=== PATIENT | male | born 1960 | race Caucasian/White ===

== ENCOUNTER 2017-09-18 06:55 | Day surgery (SDC) | payer OTHER, SELFPAY ==
[2017-09-18] VITALS (7 sets, daily range): BP systolic 101–131; BP diastolic 59–89; PULSE 62–85; RESP 14–16; TEMP 36.2–37.1; O2SAT 94–98; BMI 45.3
[2017-09-18 07:41] LABS: Bedside Glucose 143 mg/dL (70-110)
--- NOTE | 2017-09-18 08:18 | COLBX_PTH ---
PATIENT: YOGI LANE LOC: EN U#:[id number] AGE/SX: 57/M ROOM: RE09/18/[address]: Dr. Uriel Loaiza MD : 1960 BED: DIS: 09/18/2017 SPEC #: [id number] RECD: 09/18/17 09:08 STATUS: KRAIG CARLA #: [id number] PRISCILLA: 09/18/17 08:[address]: Uriel Loaiza DEPT: SURGICAL PATHOLOGY RECD BY: Catalino Warner ENTERED: 09/18/17 09:09 SP TYPE: COLON BX OTHR DR: Dr. Laura Aquino, DO Tissues: A - Right colon B - Rectum, NOS Procedures: Surgery Specimen Level IV HEADER OPERATION: Colonoscopy with polypectomy PRE-OP DIAGNOSIS: Screening TISSUE SUBMITTED: A ? Polyp right colon / proximal ascending, rule out adenoma, B ? Polyp rectum, rule out adenoma MICROSCOPIC DIAGNOSIS A. Polyp right colon/proximal ascending colon, polypectomy: Fragments of hyperplastic polyp. Fragments of fecal material. B. Rectal polyp, polypectomy: Fragments of colonic mucosa with focal hyperplastic changes and with cautery artifacts. SJ:latanya 09/19/17 MICROSCOPIC DESCRIPTION Slides are reviewed. GROSS DESCRIPTION A - Received in fixative is one container labeled with the patient's name and designated polyp right colon. The specimen consists of multiple irregular fragments of light ambrose soft tissue mixed with fecal material that in aggregate measure 2 x 1 x 0.1 cm. The specimen is totally submitted in one cassette. B - Received in fixative is one container labeled with the patient's name and designated rectal polyp. The specimen consists of two irregular fragments of light ambrose soft tissue that in aggregate measure 0.5 x 0.2 x 0.1 cm. The specimen is totally submitted in one cassette. / AM:latanya 09/18/17 TC:1 CPT: 45053 x2
--- NOTE | 2017-09-18 08:35 | PCM.OP.BLANK ---
Operative Report Date of Procedure: 09/18/17 Preop diagnosis: [Patient for screening colonoscopy] Postop diagnosis: [Colonoscopy with snare polypectomy ?2] Anesthesia:[Provided the MAC] Instrument:[Olympus adjustable pediatric colonoscope] Informed consent was taken prior to procedure. The patient was brought to the endoscopy suite and placed in the left shoulder down. Anesthesia provided the MAC. Rectal exam was performed prior to inserting the scope. The colonoscope was passed into the rectum the rectal mucosa appeared normal.. Moving up the left colon there was scattered diverticuli. Across the transverse colon mucosa was normal down the right colon the cecum was visualized the patient had an excellent preparation. Just above the cecum was a sessile polyp on a fold using a hot snare the polyp was transected. There was a small residual piece of the polyp this was removed with cold biopsy forceps. Backup the right colon there were no large polyps seen across the transverse colon mucosa remain normal. Below the splenic flexure and down to the left colon there was diverticulosis and myochosis. At the distal sigmoid rectal area was a small sessile polyp this was removed with a hot snare. Retroflexion performed the rectum showed no abnormalities of the rectal mucosa. The colon was decompressed and the patient tolerated procedure well. Impression: Screening colonoscopy small polyps removed from the colon today via hot snare Plan: Follow-up the pathology repeat a colonoscopy within 3-[address] rae
== END 2017-09-18 09:13 | disposition home or self-care (01) ==
LOC: EN 06:56 → AC 06:59
PROVIDERS: Family Provider Internal Medicine; PCP Internal Medicine; Visit Provider Internal Medicine Gastroenterology
PROC: 0DJD8ZZ Inspection of Lower Intestinal Tract, Via Natural or Artificial Opening Endoscopic (ICD-10-PCS; CPT 45378; principal; 2017-09-18 07:55)
DX: Z12.11 Encounter for screening for malignant neoplasm of colon (principal); K63.5 Polyp of colon; K62.1 Rectal polyp; K57.30 Diverticulosis of large intestine without perforation or abscess without bleeding; G47.30 Sleep apnea, unspecified; Z87.442 Personal history of urinary calculi; Z79.84 Long term (current) use of oral hypoglycemic drugs
CPT/HCPCS: 45380; 82962; 88305; J7120

== ENCOUNTER → 2018-05-19 07:50 | Outpatient (CLI) | payer OTHER, SELFPAY ==
--- NOTE | 2018-05-19 07:52 | US_ITS ---
STUDY: ABDOMINAL ULTRASOUND - RIGHT UPPER QUADRANT REASON FOR VISIT: Male, 57 years old. History of fatty infiltration of the liver. TECHNIQUE: Ultrasound evaluation of the right upper quadrant was performed with real-time and static michele-scale imaging. TECHNICAL QUALITY: Adequate. COMPARISON: Comparison is made with prior ultrasound abdomen dated May 19, 2017. FINDINGS: Liver: The liver measures 16.1 cm. There is increased echogenicity consistent with fatty infiltration. The bile ducts are within normal limits. There is hepatic color flow. The direction of portal flow is hepatopetal. There is no demonstrated mass lesion. Gallbladder: Normal distended gallbladder. The gallbladder wall measures 2.6 mm. There is a negative sonographic Echeverria's sign. There is no pericholecystic fluid. There are multiple echogenic structures within the gallbladder, consistent with multiple gallstones. Common Bile Duct (C.B.D.): The common bile duct measures 3.6 mm. Pancreas: Normal size of the head, body and tail of the pancreas. There is normal echogenicity of the pancreas. There is no demonstrated pancreatic mass or cyst. Right Kidney: Normal size of the right kidney. The right kidney measures 11.5 cm x 6.4 cm x 6.9 cm. Normal renal cortex. The right cortex measures 2.0 cm. There is no demonstrated renal mass or cyst. There is no right hydronephrosis. US/Liver IMPRESSION: Fatty infiltration of the liver. Multiple gallstones. There has been no change since prior study. Electronically Signed: Nikita Stark MD at 14:13 EST Tel [phone], Service support ,
== END ==
PROVIDERS: Family Provider Internal Medicine; PCP Internal Medicine; Referring Provider Internal Medicine; Visit Provider Internal Medicine
DX: K76.0 Fatty (change of) liver, not elsewhere classified (principal)
CPT/HCPCS: 76705

== ENCOUNTER → 2019-01-06 | Outpatient (CLI) | payer OTHER, SELFPAY ==
--- NOTE | 2019-01-06 12:31 | CT_ITS ---
STUDY: CT ABDOMEN AND PELVIS WITH CONTRAST REASON FOR EXAM: Male, 58 years old. Right lower quadrant pain x3 weeks RADIATION DOSAGE (If Supplied By Facility): CTDIvol = ( 21.96 ) mGy, DLP = ( 1795.12 ) mGycm TECHNIQUE: Transaxial images were obtained from the dome of the diaphragm to the symphysis pubis without oral contrast. 100CC IV/Oral Isovue 300 was administered. Sagittal and coronal images were reconstructed. Individualized dose optimization techniques were used for this CT. COMPARISON: 2017 FINDINGS: The visualized lung bases are unremarkable. The visualized portions of the heart are within normal limits. There is decreased attenuation of the liver consistent with steatosis. There are multiple gallstones. Normal spleen. Normal pancreas. Normal bilateral adrenal glands. No obstructive uropathy, stable nonobstructing stone in the lower pole of the left kidney There is a small hiatal hernia. There is nonspecific thickening of the duodenum with induration of the renal fat suggesting duodenitis. This is best seen on axial images 38 through 44. Retained stool noted throughout the colon with scattered colonic diverticulosis but no CT evidence of acute diverticulitis. There is non-visualization of the appendix. There is diffuse atherosclerotic calcification of the abdominal aorta, without a demonstrated aneurysm. Normal inferior vena cava. Normal retroperitoneum. Normal urinary bladder. Normal abdominal wall. There are diffuse degenerative changes of the visualized lumbar spine, and pelvis, old healed right pelvic fractures.. CT/Abdomen/Pelvis WITH Contrast IMPRESSION: Subtle submucosal thickening of the duodenum with paraduodenal inflammatory stranding suggesting duodenitis. Chronic diverticulosis Atherosclerosis Nonobstructing left nephrolithiasis Fatty liver Electronically Signed: Mg Will MD at 14:56 EDT , Service support ,
[2019-01-06 13:15] LABS: Absolute Lymphocyte Count 1.48 X10^3/uL (0.83-4.51); Absolute Neutrophil Count 7.3 X10^3/uL (2.0-7.7); Basophil# 0.03 X10^3/uL; Basophil% 0.3 % (0-1); Eosinophil# 0.36 X10^3/uL; Eosinophils% 3.5 % (0-5); Hematocrit 47.8 % (40-54); Hemoglobin 15.9 g/dL (13.0-16.5); Lymphocyte # 1.48 X10^3/ul (4.0); Lymphocyte % 14.6 % (19-41); Mean Corp Hgb Conc 33.3 g/dL (32-36); Mean Corpuscular Hgb 29.4 pg (27.0-32.0); Mean Corpuscular Volume 88.5 fL (80-94); Mean Platelet Vol. 10.4 fl (6.2-12.0); Monocyte# 1.01 X10^3/uL; Monocyte% 9.9 % (0-10); NRBC Flagged by Analyzer 0 % (0-5); Neutrophil # 7.25 X10^3/uL (2.7-7.7); Neutrophil % 71.3 % (47-70); Platelet Count 220 K/mm3 (150-450); RBC Distribution Width CV 13.2 % (11.6-14.6); RBC Distribution Width SD 42.8 fl (35.1-43.9); White Blood Count 10.2 K/mm3 (4.4-11.0)
[2019-01-06 13:18] LABS: Erythrocyte Sedimentation Rate 24 mm/hr (0-20)
[2019-01-06 13:27] LABS: ALB/GLOB Ratio 1.2 RATIO (0.9-2.4); AST(SGOT) 10 U/L (15-37); Alanine Aminotransfer ALT/SGPT 20 U/L (16-61); Albumin, Serum 3.9 g/dL (3.2-5.0); Alkaline Phosphatase 110 U/L (45-117); Anion Gap 9 (5-15); BUN 15 mg/dL (7-18); BUN/Creat Ratio 19.3 RATIO (10-20); CRP 6.45 mg/L (0.0-3.0); Calcium,Total 9.6 mg/dL (8.5-10.1); Chloride 102 mmol/L (98-107); Creatinine, Serum 0.78 mg/dL (0.70-1.30); EST Glomerular Filtration Rate 108 mL/min (>60); Est Glom Filt Rate - Afr Amer 131 mL/min (>60); Globulin 3.3 g/dL (2.2-4.2); Glucose 92 mg/dL (74-106); Potassium 4.4 mmol/L (3.5-5.1); Protein, Total 7.2 g/dL (6.4-8.2); Sodium Level 141 mmol/L (136-145)
[2019-01-06 14:31] LABS: CREATININE FINGERSTICK 0.6 mg/dL (0.70-1.30); EGFR FINGERSTICK > 60.0000 mL/min (>60)
== END | disposition home or self-care (01) ==
PROVIDERS: Family Provider Internal Medicine; PCP Internal Medicine; Referring Provider Internal Medicine; Visit Provider Internal Medicine
DX: R10.84 Generalized abdominal pain (principal)
CPT/HCPCS: 74177; 80053; 85025; 85652; 86140; Q9967

== ENCOUNTER → 2020-10-16 08:41 | Outpatient (CLI) | payer OTHER, SELFPAY ==
--- NOTE | 2020-10-16 08:44 | US_ITS ---
STUDY: ABDOMINAL ULTRASOUND - RIGHT UPPER QUADRANT REASON FOR VISIT: Male, 60 years old FATTY LIVER TECHNIQUE: Ultrasound evaluation of the right upper quadrant was performed with real-time and static michele-scale imaging. TECHNICAL QUALITY: Adequate. COMPARISON: Comparison is made with prior examination dated 05/19/2018. FINDINGS: Liver: The liver is enlarged and measures 20.5 cm. There is increased echogenicity consistent with fatty infiltration. The bile ducts are within normal limits. There is hepatic color flow. The direction of portal flow is hepatopetal. There is no demonstrated mass lesion. Gallbladder: Normal distended gallbladder. The gallbladder wall measures 3 mm. There is a negative sonographic Echeverria''s sign. There is no pericholecystic fluid. There are multiple echogenic structures within the gallbladder, consistent with multiple gallstones. Common Bile Duct (C.B.D.): The common bile duct measures 6 mm. Pancreas: There is nonvisualization of the pancreas due to overlying bowel gas. Right Kidney: Normal size of the right kidney. The right kidney measures 11.5 cm x 7.3 cm x 5.6 cm. Normal renal cortex. The right cortex measures 2 cm. There is no demonstrated renal mass or cyst. There is no right hydronephrosis. Findings suggestive of an 8 mm x 5 mm calculus in the midpole calyx of the right kidney. US/Liver IMPRESSION: Hepatomegaly and diffuse fatty infiltration of the liver. Multiple gallstones. Electronically Signed: Nikita Stark MD at 11:08 EDT , Service support ,
== END ==
PROVIDERS: PCP Internal Medicine; Referring Provider Internal Medicine; Visit Provider Internal Medicine
DX: K76.0 Fatty (change of) liver, not elsewhere classified (principal)
CPT/HCPCS: 76705

== ENCOUNTER 2020-11-29 09:00 | Outpatient (RCR) | payer OTHER, SELFPAY ==
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
--- NOTE | 2021-04-20 12:35 | HP.PT.NRP ---
YOGI LANE was seen in my office for initial evaluation on 11/03/20. The following Plan of Care was established for this patient: Initial Frequency: 3x /Week Initial Duration: 3 Weeks Patient/Client Instruction: Educate patient on: Condition, Plan of Care For the Purpose of:: To improve self management Therapeutic Exercise to Include: Strength training, Endurance training, Balance training, Flexibilty training, Dynamic Lumbar Stabilization For the Purpose of:: To decrease pain, To increase ROM, To improve muscle performance and motor function Cryotherapy (ice pack, ice massage): Yes For the Purpose of:: To decrease pain This patient was last seen in our office . Pertinent comments regarding their Physical therapy will appear below: Pt was treated for 8 PT visits secondary to L hip pain through the date of 11/29/20. Pt has not returned through todays date and is discontinued at this time. At this point I will be discontinuing this patient from physical therapy. I would be happy to see this patient again in the future if found appropriate by the physician. Thank you! Galileo Zhang, PT, ATC Balance/Gait/Functional tests - Balance/Special Test Scores Lower Extremity Functional Score: 37
== END 2020-11-29 19:00 | disposition home or self-care (01) ==
LOC: PT 09:00
PROVIDERS: PCP Internal Medicine; Referring Provider Internal Medicine; Visit Provider Internal Medicine
DX: M54.9 Dorsalgia, unspecified (principal); M25.552 Pain in left hip; M79.605 Pain in left leg; M79.604 Pain in right leg
CPT/HCPCS: 97110; 97161

== ENCOUNTER 2021-07-17 07:59 | Outpatient (CLI) | payer OTHER, SELFPAY ==
--- NOTE | 2021-07-17 08:03 | CT_ITS ---
STUDY: CT LEFT FEMUR REASON FOR EXAM: Male, 60 years old. Acute pain RADIATION DOSAGE (If Supplied By Facility): CTDIvol = ( 14.07 ) mGy, DLP = ( 861.52 ) mGycm. Individualized dose optimization techniques were used for this CT.? TECHNIQUE: 2.5 mm helical cuts were performed through the left femur without contrast. MPR performed. COMPARISON: None. FINDINGS: Severe left hip arthrosis noted with subchondral changes in the left acetabulum and left femoral head suggesting AVN. There is also obliteration of the hip joint space superiorly. These findings are much more conspicuous than on the dedicated pelvic scan. Less severe arthritic changes noted in the right hip. There are subchondral changes in the right acetabulum but no subchondral changes noted in the right femoral head. Again there is contour abnormality in the right inferior pubic ramus and right symphysis pubis suggesting old healed fracture. Soft tissues are unremarkable CT/Extremity Lower without Contra IMPRESSION: Severe left hip arthrosis with subchondral changes both in the femoral head and acetabulum suggesting AVN. These changes are more conspicuous than noted on the CT scan of the pelvis from earlier today There is consistent right hip arthrosis with subtle subchondral change in the right acetabulum but no subchondral changes in the right femoral head Old healed right inferior pubic ramus and symphysis pubis fractures Electronically Signed: Mg Will MD at 14:31 EST ,
--- NOTE | 2021-07-17 08:03 | CT_ITS ---
STUDY: CT PELVIS WITHOUT CONTRAST REASON FOR EXAM: Male, 60 years old. Acute pain RADIATION DOSAGE (If Supplied By Facility): CTDIvol = ( 14.07 ) mGy, DLP = ( 861.52 ) mGycm TECHNIQUE: Transaxial imaging of the pelvis was performed with oral contrast, and without intravenous administration of contrast material. Multiplanar coronal and sagittal images were reformatted. Individualized dose optimization techniques were used for this CT. COMPARISON: None. FINDINGS: Normal urinary bladder. Normal visualized small intestine. Normal visualized colon. There is no pelvic fluid. There is no pelvic mass lesion or lymphadenopathy. Normal visualized pelvic arteries. Normal abdominal wall. Bones are demineralized. Age consistent SI joint arthrosis noted. No demonstrated sacral fracture or suspicious erosive lesion. There is contour abnormality in the right inferior pubic ramus and right symphysis suggesting previous trauma. There are also subchondral changes in both acetabulum suggesting findings of AVN. Findings are more advanced in the left acetabulum on the right. Moderate bilateral hip arthrosis without acute fracture. CT/Pelvis without IV Contrast IMPRESSION: Subchondral changes in both acetabula to suspect changes of AVN. Old healed right inferior pubic ramus and symphysis pubis fractures. No acute fracture Age consistent bilateral hip and SI joint arthrosis Soft tissues are unremarkable Electronically Signed: Mg Will MD at 14:28 EST ,
== END 2021-07-17 23:59 | disposition short-term general hospital (02) ==
LOC: CT 08:01
PROVIDERS: PCP Internal Medicine; Referring Provider Physician Assistant; Visit Provider Physician Assistant
DX: M16.52 Unilateral post-traumatic osteoarthritis, left hip (principal); E11.69 Type 2 diabetes mellitus with other specified complication; E66.01 Morbid (severe) obesity due to excess calories; Z68.42 Body mass index [BMI] 45.0-49.9, adult; M70.62 Trochanteric bursitis, left hip; R03.0 Elevated blood-pressure reading, without diagnosis of hypertension
CPT/HCPCS: 72192; 73700

== ENCOUNTER → 2021-11-23 | Outpatient (CLI) | payer OTHER, SELFPAY ==
--- NOTE | 2021-11-23 06:58 | US_ITS ---
STUDY: ABDOMINAL ULTRASOUND - RIGHT UPPER QUADRANT REASON FOR VISIT: Male, 61 years old FATTY LIVER TECHNIQUE: Ultrasound evaluation of the right upper quadrant was performed with real-time and static michele-scale imaging. TECHNICAL QUALITY: Adequate. COMPARISON: 10/16/2020 FINDINGS: Liver: The liver measures 18.5 cm. There is increased echogenicity consistent with fatty infiltration. The bile ducts are within normal limits. There is hepatic color flow. The direction of portal flow is hepatopetal. There is no demonstrated mass lesion. Gallbladder: Normal distended gallbladder. The gallbladder wall measures 2 mm. There is a negative sonographic Echeverria''s sign. There is no pericholecystic fluid. There are multiple echogenic structures within the gallbladder, consistent with multiple gallstones. Common Bile Duct (C.B.D.): The common bile duct measures 3 mm. Pancreas: Normal size of the head, body and tail of the pancreas. There is normal echogenicity of the pancreas. There is no demonstrated pancreatic mass or cyst. Right Kidney: Normal size of the right kidney. The right kidney measures 12.5 cm. Normal renal cortex. The right cortex measures 1.5 cm. There is no demonstrated renal mass or cyst. There is no right hydronephrosis. US/Abdomen Limited IMPRESSION: 1. Cholelithiasis. 2. Fatty infiltration of the liver. Electronically Signed: Jacinto Hernández MD at 9:25 EDT ,
--- NOTE | 2021-11-23 13:19 | PFTCOMP_ITS ---
COMPLETE PULMONARY FUNCTION TEST INTERPRETATION Brief HPI: Patient is a 61-year-old male, currently under the care of Dr. Aquino, who presents to [facility] for complete pulmonary function tests secondary to diagnosis of blood flow. Respiratory therapist reports good effort and reproducible results. Interpretation: Forced expiration spirometry shows no large airways obstructive ventilatory defect with an FEV1 of 73% predicted. There is no significant bronchodilator response by strict ATS criteria. Spirograms are of good quality and plateau normally. The respiratory flow volume loop shows a normal pattern. Lung volumes by body plethysmography show a decreased total lung capacity at 4.91 L, 74% predicted. All other lung volumes are reduced symmetrically. Diffusion capacity by carbon monoxide is normal at 86% predicted. The airway resistance is slightly elevated. No previous pulmonary function tests were available for review. Impression: Mild restrictive ventilatory defect with relatively preserved diffusion capacity in a pattern consistent with musculoskeletal limitation
== END | disposition home or self-care (01) ==
LOC: PSN 06:56
PROVIDERS: PCP Internal Medicine; Referring Provider Internal Medicine; Visit Provider Internal Medicine
DX: K76.0 Fatty (change of) liver, not elsewhere classified (principal); R94.2 Abnormal results of pulmonary function studies
CPT/HCPCS: 76705; 94060; 94726; 94729

== ENCOUNTER → 2021-12-18 | Outpatient (CLI) | payer SELFPAY ==
--- NOTE | 2021-12-18 12:12 | CT_ITS ---
INDICATION: PURE HYPERCHOLESTEROLEMIA,!!! LIMITED CHEST OVERREAD ONLY FOR CA SCORING!!! EXAMINATION: CT CHEST WITHOUT CONTRAST - CT Chest W/O Contrast Injection TECHNIQUE: Helically acquired images were obtained of the chest. A radiation dose optimization technique was used for this scan. IV Contrast dosage and agent: None. COMPARISON: None. FINDINGS: LUNGS, PLEURA AND LARGE AIRWAYS: No masses, consolidation, or edema. No pleural effusion or thickening. No pneumothorax. THYROID: No thyroid lesions. HEART AND PERICARDIUM: Heart size is normal. No pericardial effusion. CORONARY ARTERIES: Coronary artery calcification is seen. VESSELS: Mild degree of plaque calcification of the aortic arch. MEDIASTINUM AND JORDYN: No mediastinal or hilar adenopathy. Esophagus is unremarkable. No hiatal hernia. UPPER ABDOMEN: No acute pathology. BONES: No suspicious lytic or blastic abnormality. CT/Limited Chest CT Cardiac Only IMPRESSION: Coronary artery calcification. Electronically Signed: Nikita Stark MD at 14:52 EDT ,
[2021-12-18 12:45] VITALS: PULSE 67; RESP 18; O2SAT 97; BMI 43.0
--- NOTE | 2021-12-24 17:53 | CA.SCORE ---
Calcium Scoring Coronary Calcium Scoring: High-resolution Computed Tomographic imaging of the chest was performed on [12/18/2021 ], with particular attention paid to the coronary arteries. Images from the examination were analyzed for the presence and extent of coronary artery calcification , using coronary calcium quantification software. The patient tolerated the procedure well and there were no complications. The results of the coronary calcification analysis are provided below. Findings Coronary Artery Left Main (LM): 0 Left Anterior Descending (LAD): 108 Left Circumflex (LCX): 0 Right Coronary Artery (RCA): 10 Total Agatston Score: 118 Percentile Rankin Calcium Scoring Interpretation: 0 No identifiable atherosclerotic plaque. Very low cardiovascular disease risk. <5% chance of presence coronary artery disease A Negative Examination 1-10 Minimal Plaque burden. Significant coronary artery disease very unlikely. 11-100 Mild plaque burden. Likely mild or minimal coronary atherosclerosis. 101-400 Moderate plaque burden Moderate non-obstructive coronary artery disease highly likely. Over 400 Extensive plaque burden. High likelihood of at least one significant coronary stenosis (>50% diameter) Calcium Score: 101 - 400 Moderate non-obstructive coronary artery disease highly like Conclusion: Mild to moderate CAD noted
== END | disposition home or self-care (01) ==
PROVIDERS: PCP Internal Medicine; Referring Provider Internal Medicine; Visit Provider Internal Medicine
DX: E78.00 Pure hypercholesterolemia, unspecified (principal); I25.10 Atherosclerotic heart disease of native coronary artery without angina pectoris
CPT/HCPCS: 75571; 76380